=== PATIENT | female | born 1995 | race Caucasian/White ===

== ENCOUNTER 2017-03-12 19:13 | Emergency (ER) | payer OTHER ==
[~2017-03-12] VITALS: Ht 167.6 cm; Wt 68.0 kg
[~2017-03-12 19:13] MED LIST: HYDR-971 PO; NAPR500T PO
[2017-03-12 19:53] VITALS: BP 140/66
[2017-03-12] MEDS ORDERED: AMOX1TAB61 PO (20:28)
[2017-03-12] MEDS ORDERED: BENZ100C PO (20:28)
--- NOTE | 2017-03-12 20:28 | PHYS DOC ---
Past Medical History Past Medical History: No Pertinent History Past Surgical History: No Surgical History Alcohol Use: None Drug Use: None Adult General Chief Complaint Chief Complaint: SORE THROAT HPI HPI Patient is a 21 year old female with history of smoking who presents today with sore throat nasal congestion with sinus pressure and a headache intermittently for one week. Patient states he has pus pockets on the left side of her throat. Review of Systems Review of Systems Constitutional: Denies fever or chills [] Eyes: Denies change in visual acuity, redness, or eye pain [] HENT: nasal congestion and sore throat with pus pockets Respiratory: cough Cardiovascular: No additional information not addressed in HPI [] GI: Denies abdominal pain, nausea, vomiting, bloody stools or diarrhea [] : Denies dysuria or hematuria [] Musculoskeletal: Denies back pain or joint pain [] Integument: Denies rash or skin lesions [] Neurologic: headache Endocrine: Denies polyuria or polydipsia [] Allergies Allergies Allergies Coded Allergies Type Severity Reaction Last Updated Verified No Known Drug Allergies 01/27/16 No Physical Exam Physical Exam Constitutional: Well developed, well nourished, no acute distress, non-toxic appearance. [] HENT: Normocephalic, atraumatic, bilateral external ears normal, oropharynx moist, no oral exudates, nose normal. [] posterior pharynx with mild erythema and exudate on the left side Eyes: PERRLA, EOMI, conjunctiva normal, no discharge. [] Neck: Normal range of motion, no tenderness, supple, no stridor. [] Cardiovascular:Heart rate regular rhythm, no murmur [] Lungs & Thorax: Bilateral breath sounds clear to auscultation [] Abdomen: Bowel sounds normal, soft, no tenderness, no masses, no pulsatile masses. [] Skin: Warm, dry, no erythema, no rash. [] Back: No tenderness, no CVA tenderness. [] Extremities: No tenderness, no cyanosis, no clubbing, ROM intact, no edema. [] Neurologic: Alert and oriented X 3, normal motor function, normal sensory function, no focal deficits noted. [] Psychologic: Affect normal, judgement normal, mood normal. [] Current Patient Data Vital Signs Vital Signs Date Time Temp Pulse Resp B/P (MAP) Pulse Ox O2 Delivery O2 Flow Rate FiO2 03/12/17 19:53 99.6 89 18 100 Room Air 99.6 EKG EKG [] Radiology/Procedures Radiology/Procedures [] Course & Med Decision Making Course & Med Decision Making Pertinent Labs and Imaging studies reviewed. (See chart for details) Patient has acute sinusitis infection, pharyngitis, and a cough. She was encouraged to consider smoking cessation. Discharged with Augmentin. Follow-up with her own PCP in 1-2 weeks as needed. Dragon Disclaimer Dragon Disclaimer This electronic medical record was generated, in whole or in part, using a voice recognition dictation system. Departure Departure Impression: Primary Impression: Acute sinusitis Additional Impressions: Cough Smoking addiction Pharyngitis, acute Disposition: HOME, SELF-CARE Condition: STABLE Referrals: NO PCP (PCP) Follow-up with your doctor in 1-2 weeks Patient Instructions: Cough, Adult, Sinusitis, Smoking Cessation, Viral and Bacterial Pharyngitis Additional Instructions: You were seen for a sinus infection coughing and a headache. Complete your antibiotics. Take [id number] decongestants as needed. Scripts Benzonatate (TESSALON PERLE) 100 Mg Capsule 1 CAP PO TID, #30 CAP Prov: HARRIET LENNON DIRECTOR CUSTOMER 03/12/17 Amoxicillin/Potassium Clav (AUGMENTIN 875-125 TABLET) 1 Each Tablet 1 TAB PO BID, #20 TAB Prov: HARRIET LENNON DIRECTOR CUSTOMER 03/12/17 Problem Qualifiers Primary Impression: Acute sinusitis Sinusitis location: maxillary Recurrence: non-recurrent Qualified Codes: J01.00 - Acute maxillary sinusitis, unspecified Additional Impressions: Pharyngitis, acute Pharyngitis/tonsillitis etiology: unspecified etiology Qualified Codes: J02.9 - Acute pharyngitis, unspecified HARRIET LENNON DIRECTOR CUSTOMER Mar 12, 2017 20:28
[2017-03-13 07:01] LABS: NEGATIVE OBC STREP NEG; POSITIVE OBC STREP POS
== END 2017-03-12 20:33 | disposition home or self-care (01) ==
LOC: ER 19:13
DX: J01.00 Acute maxillary sinusitis, unspecified (principal); F17.200 Nicotine dependence, unspecified, uncomplicated; J02.9 Acute pharyngitis, unspecified
CPT/HCPCS: 87070; 87880; 99283

== ENCOUNTER → 2020-03-01 | Outpatient (CLI) | payer MEDICAID ==
[~2020-03-01] MED LIST changes: +AMOX1TAB61 PO; +BENZ100C PO; +HYDR-3164 PO; -HYDR-971 PO; +NAPR-683 PO; -NAPR500T PO
[2020-03-01 13:09] LABS: HEMATOCRIT 39.5 % (36.0-47.0); HEMOGLOBIN 13.6 g/dL (12.0-15.5); RED BLOOD COUNT 4.51 x10^6/uL (3.50-5.40); RED CELL DISTRIBUTION WIDTH 15.3 % (11.5-14.5); WHITE BLOOD COUNT 5.9 x10^3/uL (4.0-11.0)
[2020-03-01 13:42] LABS: FREE T4 0.91 ng/dL (0.76-1.46); THYROID STIM HORMONE (TSH) 0.723 uIU/mL (0.358-3.74)
[2020-03-02 18:09] LABS: RUBELLA IGG ANTIBODY 5.89 index (Immune >0.99)
== END | disposition home or self-care (01) ==
LOC: LAB 12:14
PROVIDERS: ATTEND Obstetrics & Gynecology
DX: Z34.91 Encounter for supervision of normal pregnancy, unspecified, first trimester (principal); Z3A.00 Weeks of gestation of pregnancy not specified
CPT/HCPCS: 81220; 84439; 84443; 85027; 86592; 86703; 86762; 86787; 86803; 86850; 86900; 86901; 87340

== ENCOUNTER → 2020-04-03 | Outpatient (CLI) | payer MEDICAID ==
--- NOTE | 2020-04-03 14:57 | RAD ---
EXAM: Obstetrics sonogram. HISTORY: Unsure dates. TECHNIQUE: Sonographic imaging of a gravid uterus was performed. COMPARISON: None. FINDINGS: There is a single intrauterine gestational sac with pole. The crown-rump length is 5.1 cm, corresponding with a gestational age of 11 weeks and 6 days. The heart rate is 171 bpm. The uterus is normal in size. The gestational sac is normal in configuration and location. The anatomic fluid volume is normal. The ovaries are unremarkable. IMPRESSION: Single intrauterine fetus with normal heart rate and gestational age of 11 weeks and 6 days. Electronically signed by: Silvia Sandhu MD (04/03/2020 2:54 PM) [id number]
== END | disposition home or self-care (01) ==
LOC: US 08:44
PROVIDERS: ATTEND Obstetrics & Gynecology
DX: Z34.91 Encounter for supervision of normal pregnancy, unspecified, first trimester (principal); Z3A.11 11 weeks gestation of pregnancy
CPT/HCPCS: 76801

== ENCOUNTER 2020-04-20 16:34 | Emergency (ER) | payer MEDICAID ==
[~2020-04-20] VITALS: Ht 170.2 cm; Wt 75.3 kg
[2020-04-20 17:29] LABS: BASO % 0 % (0-3); EOS % 0 % (0-3); HEMATOCRIT 39.9 % (36.0-47.0); HEMOGLOBIN 13.5 g/dL (12.0-15.5); LYMPH # 1.6 x10^3/uL (1.0-4.8); LYMPH % 21 % (24-48); MEAN CORPUSCULAR HEMOGLOBIN 29 pg (25-35); MEAN CORPUSCULAR HGB CONC 34 g/dL (31-37); MEAN CORPUSCULAR VOLUME 87 fL (79-100); MONO # 0.5 x10^3/uL (0.0-1.1); MONO % 6 % (0-9); NEUT # 5.4 x10^3/uL (1.8-7.7); NEUT % 72 % (31-73); PLATELET COUNT 184 x10^3/uL (140-400); RED BLOOD COUNT 4.57 x10^6/uL (3.50-5.40); RED CELL DISTRIBUTION WIDTH 14.3 % (11.5-14.5); WHITE BLOOD COUNT 7.6 x10^3/uL (4.0-11.0)
--- NOTE | 2020-04-20 17:34 | PHYS DOC ---
Past Medical History Past Medical History: No Pertinent History (TRES BURK MD) Past Surgical History: No Surgical History (TRES BURK MD) Smoking Status: Current Every Day Smoker Additional Information: 09/08 ppd Alcohol Use: None Drug Use: None (TRES BURK MD) General Adult EDM: Chief Complaint: VAGINAL BLEEDING HPI: HPI: Patient is a 24-year-old at 14 weeks gestation who presents to the emergency room complaining of vaginal bleeding. She states that she got a sudden gush of blood and has had some spotting since then. She denies any trauma. It is been several weeks since she has had intercourse. She is not had any difficulty with this other than some nausea and vomiting. She has not been having any discharge. She denies any abdominal pain or cramping. She not have any complications with her prior pregnancies. She denies any shortness of breath or dizziness. (TRES BURK MD) Heart Score: Risk Factors: Risk Factors: DM, Current or recent (<one month) smoker, HTN, HLP, family history of CAD, obesity. Risk Scores: Score 0 - 3: 2.5% MACE over next 6 weeks - Discharge Home Score 4 - 6: 20.3% MACE over next 6 weeks - Admit for Clinical Observation Score 7 - 10: 72.7% MACE over next 6 weeks - Early Invasive Strategies (TRES BURK MD) Allergies: Allergies: Allergies Coded Allergies Type Severity Reaction Last Updated Verified No Known Drug Allergies 04/20/20 No (TRES BURK MD) Physical Exam: PE: Constitutional: Well developed, well nourished, no acute distress, non-toxic appearance. [] HENT: Normocephalic, atraumatic, bilateral external ears normal, oropharynx moist, no oral exudates, nose normal. [] Eyes: PERRLA, EOMI, conjunctiva normal, no discharge. [] Neck: Normal range of motion, no tenderness, supple, no stridor. [] Cardiovascular:Heart rate regular rhythm, no murmur [] Lungs & Thorax: Bilateral breath sounds clear to auscultation [] Abdomen: Bowel sounds normal, soft, no tenderness, no masses, no pulsatile masses. [] Skin: Warm, dry, no erythema, no rash. [] Back: No tenderness, no CVA tenderness. [] Extremities: No tenderness, no cyanosis, no clubbing, ROM intact, no edema. [] Neurologic: Alert and oriented X 3, normal motor function, normal sensory fu nction, no focal deficits noted. [] Psychologic: Affect normal, judgement normal, mood normal. [] (TRES BURK MD) EKG: EKG: [] (TRES BURK MD) Radiology/Procedures: Radiology/Procedures: [] (TRES BURK MD) Course & Med Decision Making: Course & Med Decision Making Pertinent Labs and Imaging studies reviewed. (See chart for details) [] (TRES BURK MD) Course & Med Decision Making 2035-patient was seen and evaluated. Patient reports she is doing well with no active bleeding. She denies any abdominal or pelvic pain at this time. I discussed the case with Dr. Petit who is comfortable letting her go home. Ultrasound was reviewed with him. The patient does have a viable fetus at this time. I discussed reasons to return, treatment plan and need for follow-up. (MICHAEL IRVERS MD) Dragon Disclaimer: Dragon Disclaimer: This electronic medical record was generated, in whole or in part, using a voice recognition dictation system. (TRES BURK MD) Departure Departure Impression: Primary Impression: Vaginal bleeding before 22 weeks gestation Additional Impression: Threatened miscarriage Disposition: 01 HOME, SELF-CARE Condition: GOOD Referrals: NO PCP (PCP) Patient Instructions: Threatened Miscarriage, Vaginal Bleeding During , Second Trimester Additional Instructions: Follow-up with your OB next week Justicifation of Admission Dx: Justifications for Admission: Justification of Admission Dx: Yes (TRES BURK MD) Justification of Admission Dx: N/A (MICHAEL RIVERS MD) TRES BURK MD Apr 20, 2020 17:34 MICHAEL RIVERS MD Apr 20, 2020 20:37
--- NOTE | 2020-04-20 18:16 | RAD ---
INDICATION: Reason: vaginal bleeding, / Spl. Instructions: / History: COMPARISON: April 03, 2020 TECHNIQUE: Grayscale and color ultrasound images of the uterus FINDINGS: Intrauterine gestational sac is identified with a pole. The cervix is closed measuring approximately 39 mm. Variable presentation. heartbeat is 155. There is a hypoechoic region deep to the placenta measuring up to approximately 30 x 10 mm. Biparietal diameter 26 mm, 14 weeks 3 day. Head circumference 99 mm, 14 week 4 day. Abdominal circumference 78 mm, 14 week 2 day. Femur length 14 mm, 14 weeks 0 days Estimated gestational age of 14 weeks and 2 days with estimated due date of 10/17/2020. There are some regions of low density within the placenta. IMPRESSION: * Intrauterine is identified with an estimated gestational age of 14 weeks and 2 days with a positive heartbeat. * Hypoechoic region is seen adjacent to the placenta. Can be from causes such as subchorionic hematoma or abruption and the patient will need close follow-up. * There is an additional hypoechoic regions within the placenta which have a nonspecific appearance with some possible causes including venous lakes but can be followed on future exam to ensure that there is not pathologic causes such as small infarcts. Electronically signed by: Yong Wolf MD (04/20/2020 6:13 PM) [id number]
[2020-04-20 21:04] VITALS: BP 117/57
== END 2020-04-20 21:04 | disposition home or self-care (01) ==
LOC: ER 16:34
DX: O20.0 Threatened abortion (principal); O21.9 Vomiting of pregnancy, unspecified; F17.200 Nicotine dependence, unspecified, uncomplicated; Z3A.14 14 weeks gestation of pregnancy
CPT/HCPCS: 36415; 76815; 85025; 99285

== ENCOUNTER → 2020-06-05 | Outpatient (CLI) | payer BC, MEDICAID ==
--- NOTE | 2020-06-05 15:42 | RAD ---
OB ultrasound greater than 14 weeks 06/05/2020 Clinical History: Second trimester . Technique: A real-time ultrasound examination of the gravid uterus was performed. Multiple images were obtained. Findings: Comparison study is dated 04/20/2020. There is a single living IUP. The fetus is in a cephalic position. cardiac and somatic activity is seen. The heart rate is 143 beats per minutes. The maternal cervix is closed. It measures 4.7 cm in length. The placenta is posterior. Anechoic areas which likely represent placental lakes are seen scattered throughout the placenta. These measure 5 mm to 2.4 cm in size. They have not significantly changed. No additional abnormality of the placenta is seen. The amniotic fluid volume is within normal limits. The RAUL measures 10.5 cm. The following measurements were obtained: BPD 4.55cm 19 weeks 5 days HC 17.36 cm 19weeks 6 days AC 14.92 cm 20weeks 1 days FL 3.44 cm 20 weeks 6 days The estimated gestational age by ultrasound is 20 weeks 1 days plus or minus a standard deviation of 10 days. The estimated date of delivery by ultrasound is 10/22/2020. Since the previous examination there has been appropriate interval growth. No abnormality is seen. Specifically the stomach, bladder, kidneys, 3 vessel cord and cord insertion, four-chamber heart, cisterna magna, cerebellum, nose/mouth, spine and extremities are well-visualized and within normal limits. Impression: 1. Single living IUP with an estimated gestational age by ultrasound of 20 weeks1 days +/- a standard deviation of 10 days. Since the previous examination there has been appropriate interval growth. 2. . Small placental lakes are seen within the placenta, unchanged from the previous study. Electronically signed by: Timothy To MD (06/05/2020 3:39 PM) [id number]
== END | disposition home or self-care (01) ==
LOC: US 10:58
PROVIDERS: ATTEND Obstetrics & Gynecology
DX: Z34.92 Encounter for supervision of normal pregnancy, unspecified, second trimester (principal); Z3A.20 20 weeks gestation of pregnancy
CPT/HCPCS: 76805

== ENCOUNTER → 2020-07-20 | Outpatient (CLI) | payer MEDICAID ==
[2020-07-20 11:38] LABS: HEMATOCRIT 34.6 % (36.0-47.0); HEMOGLOBIN 11.7 g/dL (12.0-15.5); RED BLOOD COUNT 3.93 x10^6/uL (3.50-5.40); RED CELL DISTRIBUTION WIDTH 14.3 % (11.5-14.5); WHITE BLOOD COUNT 9.4 x10^3/uL (4.0-11.0)
== END ==
LOC: LAB 10:21
PROVIDERS: ATTEND Obstetrics & Gynecology
DX: Z34.92 Encounter for supervision of normal pregnancy, unspecified, second trimester (principal); Z3A.25 25 weeks gestation of pregnancy
CPT/HCPCS: 36415; 82950; 85027

== ENCOUNTER → 2020-08-08 | Outpatient (CLI) | payer MEDICAID ==
--- NOTE | 2020-08-08 16:39 | RAD ---
EXAM: Right lower extremity venous Doppler sonogram. HISTORY: Pain and swelling. TECHNIQUE: Hutson scale and color Doppler sonographic evaluation of the right lower extremity veins with spectral waveform analysis was performed. FINDINGS: There is normal color flow, normal compressibility and there are normal spectral waveforms in the common femoral, superficial femoral, popliteal, posterior tibial and greater saphenous veins. IMPRESSION: No Doppler evidence of lower extremity deep venous thrombosis. Electronically signed by: Silvia Sandhu MD (08/08/2020 4:36 PM) [facility]
== END ==
LOC: US 15:55
PROVIDERS: ATTEND Obstetrics & Gynecology
DX: M79.604 Pain in right leg (principal)
CPT/HCPCS: 93971

== ENCOUNTER → 2020-09-13 | Outpatient (CLI) | payer BC, MEDICAID ==
[~2020-09-13] MED LIST changes: +DOCU-109 PO; +IBUP-1060 PO; +OXYC1TAB15 PO; +PNV1TABL25 PO; +SERT50TA PO
== END ==
LOC: SPEC 10:15
PROVIDERS: ATTEND Obstetrics & Gynecology
DX: Z34.93 Encounter for supervision of normal pregnancy, unspecified, third trimester (principal); Z3A.00 Weeks of gestation of pregnancy not specified
CPT/HCPCS: Q0111

== ENCOUNTER → 2020-10-01 | Outpatient (CLI) | payer BC, MEDICAID ==
[2020-10-01 13:52] LABS: HEMATOCRIT 35.5 % (36.0-47.0); HEMOGLOBIN 11.5 g/dL (12.0-15.5); RED BLOOD COUNT 4.25 x10^6/uL (3.50-5.40); RED CELL DISTRIBUTION WIDTH 14.2 % (11.5-14.5); WHITE BLOOD COUNT 9.1 x10^3/uL (4.0-11.0)
== END ==
LOC: LAB 13:18
PROVIDERS: ATTEND Obstetrics & Gynecology
DX: Z34.93 Encounter for supervision of normal pregnancy, unspecified, third trimester (principal); Z3A.00 Weeks of gestation of pregnancy not specified
CPT/HCPCS: 36415; 85027

== ENCOUNTER 2020-10-04 10:47 | Observation (INO) | payer BC, MEDICAID ==
[~2020-10-04 10:47] MED LIST changes: -DOCU-109 PO; -IBUP-1060 PO; -OXYC1TAB15 PO; -PNV1TABL25 PO; -SERT50TA PO
[2020-10-04] MEDS ORDERED: IV RINGERS,LACTATED 1000ML 1,000 ML IV SCH (11:00)
== END 2020-10-04 12:46 | disposition home or self-care (01) ==
LOC: 3 SO LND 10:47
PROVIDERS: ADMIT Obstetrics & Gynecology; ATTEND Obstetrics & Gynecology
DX: O36.8130 Decreased fetal movements, third trimester, not applicable or unspecified (principal); Z3A.37 37 weeks gestation of pregnancy
CPT/HCPCS: 59025; G0378; G0379

== ENCOUNTER → 2020-10-11 | Outpatient (CLI) | payer BC, MEDICAID ==
[~2020-10-11] MED LIST changes: +DOCU-109 PO; +IBUP-1060 PO; +OXYC1TAB15 PO; +PNV1TABL25 PO; +SERT50TA PO
== END ==
LOC: LAB 10:05
PROVIDERS: ATTEND Obstetrics & Gynecology
DX: Z01.812 Encounter for preprocedural laboratory examination (principal); Z20.822 Contact with and (suspected) exposure to COVID-19
CPT/HCPCS: U0003

== ENCOUNTER 2020-10-15 06:10 | Inpatient (IN) | payer MEDICAID, BC ==
[~2020-10-15] VITALS: Ht 172.7 cm; Wt 88.9 kg
[~2020-10-15 06:10] MED LIST changes: -DOCU-109 PO; -IBUP-1060 PO; -OXYC1TAB15 PO; -PNV1TABL25 PO; -SERT50TA PO
[2020-10-15 06:55] VITALS: BP 126/79
[2020-10-15] MEDS ORDERED: ACETAMINOPHEN 325 MG TABLET. PO PRN ×2 (07:00→16:15)
[2020-10-15] MEDS ORDERED: BUTORPHANOL 2 MG/ML VIAL. IVP PRN ×2 (07:00)
[2020-10-15] MEDS ORDERED: TERBUTALINE 1 MG/ML VIAL. SQ PRN (07:00)
[2020-10-15] MEDS ORDERED: LIDOCAINE 1% PF 30 ML VIAL. INJ PRN (07:00)
[2020-10-15] MEDS ORDERED: 0.9 % SODIUM CHLORIDE 10 ML DISP.SYRIN. IV PRN ×2 (07:00→16:15)
[2020-10-15] MEDS ORDERED: OXYTOCIN 30 UNIT/500 ML PREMIX 500 ML IV PRN ×3 (07:00→16:15)
[2020-10-15 08:06] LABS: BASO % 1 % (0-3); EOS % 1 % (0-3); HEMATOCRIT 37.7 % (36.0-47.0); HEMOGLOBIN 12.2 g/dL (12.0-15.5); LYMPH # 2.1 x10^3/uL (1.0-4.8); LYMPH % 21 % (24-48); MEAN CORPUSCULAR HEMOGLOBIN 26 pg (25-35); MEAN CORPUSCULAR HGB CONC 32 g/dL (31-37); MEAN CORPUSCULAR VOLUME 81 fL (79-100); MONO # 0.7 x10^3/uL (0.0-1.1); MONO % 7 % (0-9); NEUT # 7.2 x10^3/uL (1.8-7.7); NEUT % 71 % (31-73); PLATELET COUNT 141 x10^3/uL (140-400); RED BLOOD COUNT 4.64 x10^6/uL (3.50-5.40); RED CELL DISTRIBUTION WIDTH 15.1 % (11.5-14.5); WHITE BLOOD COUNT 10.1 x10^3/uL (4.0-11.0)
[2020-10-15] MEDS: IV RINGERS,LACTATED 1000ML 1,000 ML IV SCH ×2 (08:27→12:16)
[2020-10-15] MEDS ORDERED: SERT50TA PO (08:38)
[2020-10-15] MEDS ORDERED: PNV1TABL25 PO (08:39)
[2020-10-15 08:53] LABS: BILIRUBIN,URINE NEGATIVE (NEG); CLARITY,URINE CLEAR; COLOR,URINE YELLOW; NITRITE,URINE NEGATIVE (NEG); PROTEIN,URINE NEGATIVE (NEG-TRACE); UROBILINOGEN,URINE 0.2 mg/dL (0.2 mg/dL)
[2020-10-15 09:09] LABS: BACTERIA,URINE 0 /HPF (0-FEW); RBC,URINE 0 /HPF (0-2); WBC,URINE 0 /HPF (0-4)
--- NOTE | 2020-10-15 09:45 | PDOC1 ---
DATA WAREHOUSE SPECIALIST H&P Date of Admission: Date of Admission: Oct 15, 2020 at 06:10 History of Present Illness: EDC: 10/20/20 LMP: 01/06/20 25y @ 39.2 by 6wk u/s presents for scheduled indxn. The pts has been complicated by a few bleeding episodes. Radiologic findings have revealed subchorionic hematoma and placental lakes that were still present on her anatomy u/s. Her bleeding has stopped. The pts plt also decreased b/t her initial labs and the repeat with her GTT, but they have plateaued when repeated at 36wks. In Oct the pt had to restart her Zoloft. Since that time her mood has improved. PMH: Denies PSH: Cyst removal left armpit Meds: PNV, Zoloft All: NKDA OBHx: TSVD x 2 SH: tob use, no EtOH FH: noncontributory Medications: Meds: Current Medications Medications (Trade) Dose Ordered Sig/Tony Route PRN Reason Start Time Stop Time Status Last Admin Dose Admin Ringer's Solution 1,000 ml @ 125 mls/hr Q8H IV 10/15/20 07:00 10/15/20 08:27 Oxytocin 500 ml @ 0 mls/hr CONT PRN IV SEE I/O RECORD 10/15/20 07:00 10/15/20 08:28 Allergies: Coded Allergies: No Known Drug Allergies (Unverified , 04/20/20) Physical Exam: Vital Signs: Vital Signs Date Time Temp Pulse Resp B/P (MAP) Pulse Ox O2 Delivery O2 Flow Rate FiO2 10/15/20 06:55 97.7 82 20 126/79 (95) 97.7 PE: GENERAL: No apparent distress. Alert and oriented. HEENT: Head normocephalic, atraumatic. NECK: Supple LUNGS: Clear to auscultation. HEART: RRR, S1, S2 present, pulses intact ABDOMEN: Soft, positive bowel sounds. EXTREMITIES: No cyanosis or edema. NEUROLOGIC: Normal speech, normal tone PSYCHIATRIC: Normal affect, normal mood. SKIN: No ulceration. FHT: 120s +acels/no decels/mLTV [place]: 2-6 min SVE: 2/50/-3 Labs: Laboratory Tests Test 10/15/20 06:45 10/15/20 07:40 Urine Color Yellow Urine Clarity Clear Urine pH 6.0 (<5.0-8.0) Urine Specific [place] 1.025 (1.000-1.030) Urine Protein Negative mg/dL (NEG-TRACE) Urine Glucose (UA) Negative mg/dL (NEG) Urine Ketones (Stick) Negative mg/dL (NEG) Urine Blood Negative (NEG) Urine Nitrite Negative (NEG) Urine Bilirubin Negative (NEG) Urine Urobilinogen Dipstick 0.2 mg/dL (0.2 mg/dL) Urine Leukocyte Esterase Negative (NEG) Urine RBC 0 /HPF (0-2) Urine WBC 0 /HPF (0-4) Urine Squamous Epithelial Cells Mod /LPF Urine Bacteria 0 /HPF (0-FEW) Urine Mucus Mod /LPF White Blood Count 10.1 x10^3/uL (4.0-11.0) Red Blood Count 4.64 x10^6/uL (3.50-5.40) Hemoglobin 12.2 g/dL (12.0-15.5) Hematocrit 37.7 % (36.0-47.0) Mean Corpuscular Volume 81 fL (79-100) Mean Corpuscular Hemoglobin 26 pg (25-35) Mean Corpuscular Hemoglobin Concent 32 g/dL (31-37) Red Cell Distribution Width 15.1 % (11.5-14.5) H Platelet Count 141 x10^3/uL (140-400) Neutrophils (%) (Auto) 71 % (31-73) Lymphocytes (%) (Auto) 21 % (24-48) L Monocytes (%) (Auto) 7 % (0-9) Eosinophils (%) (Auto) 1 % (0-3) Basophils (%) (Auto) 1 % (0-3) Neutrophils # (Auto) 7.2 x10^3/uL (1.8-7.7) Lymphocytes # (Auto) 2.1 x10^3/uL (1.0-4.8) Monocytes # (Auto) 0.7 x10^3/uL (0.0-1.1) Eosinophils # (Auto) 0.0 x10^3/uL (0.0-0.7) Basophils # (Auto) 0.0 x10^3/uL (0.0-0.2) Laboratory Tests 2/8/21 07:40 Laboratory Tests 10/15/20 07:40 Assessment & Plan: A/P 25y @ 39.2 by 6wk u/s 1.) Indxn on Pit 2.) VB - resolved, subchorionic hematoma and placental lakes on u/s 3.) N/V - resolved 4.) Back pain - musculoskeletal, conservative measures 5.) Plt 141 - stable 6.) Tob use - discussed cessation 7.) Petra NI 8.) Panorama - low risk 9.) Depression - Zoloft 10.) Fetus cat I FHT 11.) GBS neg 12.) Girl - Lyudmila 13.) TDAP given 08/17/20 VANGIE LYNN MD Oct 15, 2020 09:45
[2020-10-15] MEDS ORDERED: ROPIVacaine 0.2% PF 10 ML VIAL. ONE ×2 (13:22→13:24)
[2020-10-15] MEDS ORDERED: L&D EPIDURAL SYRINGE 0 ML ONE (13:23)
--- NOTE | 2020-10-15 16:02 | PDOC ---
VAGINAL DELIVERY DATE DATE: 10/15/20 TIME: 16:01 TIME Patient delivered a viable female over intact perineum at 1545. Wt 8 lb 0.6 oz. Apgars 8/9. Placenta delivered spontaneously, intact with 3VC. No lacerations noted. Good hemostasis noted. 20 U of Pit given with IVF. EBL 300cc. WEIGHT Weight [ ] VANGIE LYNN MD Oct 15, 2020 16:01
[2020-10-15] MEDS ORDERED: HYDROCORTISONE 1% TOPICAL OINTMENT 30GM TUBE. TP PRN (16:15)
[2020-10-15] MEDS ORDERED: diphenhydrAMINE HCL 25 MG CAPSULE PO PRN (16:15)
[2020-10-15] MEDS ORDERED: BENZOCAINE 20% TOPICAL AEROSOL SPRAY 57GM CAN. TP PRN (16:15)
[2020-10-15] MEDS ORDERED: TDaP (Adacel) per PROTOCOL. MC PRN (16:15)
[2020-10-15] MEDS ORDERED: SIMETHICONE 80 MG TAB.CHEW PO PRN (16:15)
[2020-10-15] MEDS ORDERED: MAG HYDROX/ALUMINUM HYD/SIMETH 30 ML ORAL.SUSP PO PRN (16:15)
[2020-10-15] MEDS ORDERED: PHENYLEPH/MINERAL OIL/PETROLAT RECTAL OINTMENT TUBE. RC PRN (16:15)
[2020-10-15] MEDS ORDERED: MMR per PROTOCOL. MC PRN (16:15)
[2020-10-15] MEDS ORDERED: MAGNESIUM HYDROXIDE 2,400 MG/30 ML ORAL.SUSP. PO PRN (16:15)
[2020-10-15] MEDS ORDERED: ZOLPIDEM 5 MG TABLET. PO PRN (16:15)
[2020-10-15] MEDS: IBUPROFEN 400 MG TABLET. PO PRN (17:35)
[2020-10-15 18:30] VITALS: BP 136/83
[2020-10-15 20:00] VITALS: BP 128/82
[2020-10-15] MEDS: DOCUSATE SODIUM 100 MG CAPSULE. PO PRN (20:36)
[2020-10-15] MEDS: oxyCODONE/APAP 5/325 1 TAB TABLET PO PRN (20:37)
[2020-10-16 00:15] VITALS: BP 146/91
[2020-10-16] MEDS: IBUPROFEN 400 MG TABLET. PO PRN (00:23)
[2020-10-16] MEDS: oxyCODONE/APAP 5/325 1 TAB TABLET PO PRN ×3 (00:24→13:20)
[2020-10-16 05:15] VITALS: BP 110/63
[2020-10-16 08:02] LABS: HEMATOCRIT 33.8 % (36.0-47.0); HEMOGLOBIN 10.9 g/dL (12.0-15.5); RED BLOOD COUNT 4.12 x10^6/uL (3.50-5.40); RED CELL DISTRIBUTION WIDTH 15.1 % (11.5-14.5); WHITE BLOOD COUNT 11.2 x10^3/uL (4.0-11.0)
[2020-10-16] MEDS ORDERED: PRENATAL MULTIVITAMIN TABLET. PO SCH (09:00)
[2020-10-16] MEDS: DOCUSATE SODIUM 100 MG CAPSULE. PO PRN (09:00)
[2020-10-16] MEDS ORDERED: SERTRALINE 50 MG TABLET. PO SCH (09:00)
[2020-10-16] MEDS ORDERED: OXYC1TAB15 PO (10:33)
[2020-10-16] MEDS ORDERED: IBUP-1060 PO (10:33)
[2020-10-16] MEDS ORDERED: DOCU-109 PO (10:33)
--- NOTE | 2020-10-16 10:48 | PDOC ---
VACCINE CUSTOMER REPRESENTATIVE PROGRESS NOTE Date of Service: DATE: 10/16/20 TIME: 10:48 Subjective: Pt with good pain control. Douglas PO. Voiding. Minimal lochia Objective: Vital Signs: Vital Signs Date Time Temp Pulse Resp B/P (MAP) Pulse Ox O2 Delivery O2 Flow Rate FiO2 10/15/20 12:25 20 Room Air 10/15/20 18:30 98.1 74 136/83 (100) 98.1 10/15/20 20:00 98 Vital Signs Date Time Temp Pulse Resp B/P (MAP) Pulse Ox O2 Delivery O2 Flow Rate FiO2 10/16/20 06:30 20 Room Air 10/16/20 05:15 98.3 73 110/63 (79) 97 98.3 Labs: Laboratory Tests Test 10/16/20 07:25 White Blood Count 11.2 x10^3/uL (4.0-11.0) H Red Blood Count 4.12 x10^6/uL (3.50-5.40) Hemoglobin 10.9 g/dL (12.0-15.5) L Hematocrit 33.8 % (36.0-47.0) L Mean Corpuscular Volume 82 fL (79-100) Mean Corpuscular Hemoglobin 27 pg (25-35) Mean Corpuscular Hemoglobin Concent 32 g/dL (31-37) Red Cell Distribution Width 15.1 % (11.5-14.5) H Platelet Count 133 x10^3/uL (140-400) L Laboratory Tests 10/16/20 07:25 Laboratory Tests 10/16/20 07:25 Physical Exam: GENERAL: No apparent distress. Alert and oriented. HEENT: Head normocephalic, atraumatic. NECK: Supple LUNGS: Clear to auscultation. HEART: RRR, S1, S2 present, pulses intact ABDOMEN: Soft, positive bowel sounds. EXTREMITIES: No cyanosis or edema. NEUROLOGIC: Normal speech, normal tone PSYCHIATRIC: Normal affect, normal mood. SKIN: No ulceration. FFNT below umb No C/C/E Assessment & Plan: A/P 25y PPD #1 s/p 1.) PP doing well 2.) Hgb 12.2 -> 10.9 3.) Back pain - musculoskeletal, conservative measures 4.) Plt 133 s/p 5.) Tob use - discussed cessation 6.) Petra NI 7.) Depression Zoloft restarted 8.) Girl - Lyudmila 9.) TDAP given 08/17/20 10.) Cont PP care VANGIE LYNN MD Oct 16, 2020 10:48
--- NOTE | 2020-10-16 11:03 | DS ---
DATE OF DISCHARGE: 10/16/2020 ADMISSION DIAGNOSES: 1. Intrauterine at 39 weeks and 2 days by 6-week ultrasound. 2. Induction of labor. 3. Vaginal bleeding with a resolved subchorionic hematoma and placental bai seen on ultrasound. 4. Back pain. 5. Thrombocytopenia with platelets stable at 141. 6. Tobacco use. 7. Varicella nonimmune. 8. Depression, on Zoloft. 9. GBS negative. 10. Status post Tdap. DISCHARGE DIAGNOSES: 1. Intrauterine at 39 weeks and 2 days by 6-week ultrasound. 2. Induction of labor. 3. Vaginal bleeding with a resolved subchorionic hematoma and placental bai seen on ultrasound. 4. Back pain. 5. Thrombocytopenia with platelets stable at 141. 6. Tobacco use. 7. Varicella nonimmune. 8. Depression, on Zoloft. 9. GBS negative. 10. Status post Tdap. PROCEDURE: Spontaneous vaginal delivery. BRIEF HOSPITAL COURSE: The patient is a 25-year-old 3, para 2-0-0-2, at 39 weeks and 2 days by 6-week ultrasound, who presented to Labor and Delivery for scheduled induction. The patient's was complicated by a few bleeding episodes, which had resulted in radiological findings of a subchorionic hematoma and placental bai that was still present on her most recent ultrasound. The patient has bled off and on throughout the . Most recently, she has had minimal bleeding. The patient was also noted to have thrombocytopenia at her one of CBC, was repeated with her glucose tolerance test. Her CBC was then repeated at 36 weeks showing a stable platelet count with a jessica of 141. The patient also had her Zoloft restarted in June with an improvement of her mood. When the patient presented to Labor and Delivery, the patient was found to be 2, 50 and -3. She was started on Pit. The patient ultimately delivered by vaginal delivery, see delivery note for full detail. By day #1, the patient was meeting all discharge criteria and was subsequently discharged home. Of note, the patient had hemoglobin of 12.2 on admission and after delivery was found to be 10.9. Her platelets also remained relatively stable with the post-delivery platelets of 133. DISCHARGE INSTRUCTIONS: The patient was told not to lift anything greater than 20 pounds, have pelvic rest for 6 weeks, not to drive on narcotics. CALL IF: The patient was to call if she had fevers, chills, nausea, vomiting, abdominal pain or any additional questions or concerns. FOLLOWUP APPOINTMENT: The patient is to follow up on 11/22 at 9:30 a.m. for her visit. DISCHARGE MEDICATIONS: The patient was given a prescription for Percocet 5, 10 pills; Motrin 800 mg, 30 pills and Colace 100 mg, 30 pills. VANGIE LYNN MD DR: EMMANUELLE/nts JOB#: [id number] / [id number] KAYLEN
[2020-10-16 13:31] VITALS: BP 116/73
[2020-10-16] MEDS ORDERED: FERROUS SULFATE 325 MG TABLET. PO SCH (17:00)
[2020-10-16 17:38] VITALS: BP 119/83
--- NOTE | 2020-10-16 17:50 | NUR ---
Discharge Note: Pt. denies needs or questions regarding discharge care. NB secure in car seat. Pt. escorted via WC by Emilia Hickman RN and Emilia Lopez RN to vehicle with belongings and NB present. NB on car seat base in back seat of vehicle, rear facing. Pt. discharged home to stepmother with NB. Emilia Hickman RN
== END 2020-10-16 17:50 | disposition home or self-care (01) | DRG 806 ==
LOC: 3 SO LND 06:10 → 3 NORTH 18:30
PROVIDERS: ADMIT Obstetrics & Gynecology; ATTEND Obstetrics & Gynecology
PROC: 10E0XZZ Delivery of Products of Conception, External Approach (ICD-10-PCS; principal; 2020-10-15)
DX: O46.8X3 Other antepartum hemorrhage, third trimester (principal); O99.12 Other diseases of the blood and blood-forming organs and certain disorders involving the immune mechanism complicating childbirth; Z37.0 Single live birth; O99.344 Other mental disorders complicating childbirth; F32.9 Major depressive disorder, single episode, unspecified; D69.6 Thrombocytopenia, unspecified; Z3A.39 39 weeks gestation of pregnancy; Z72.0 Tobacco use; Z79.899 Other long term (current) drug therapy
CPT/HCPCS: 36415; 81001; 85025; 85027; 86592; 86850; 86900; 86901; J0595; J2590; J7120; G0378